=== PATIENT | female | born 1995 | race Caucasian/White ===

== ENCOUNTER 2017-11-04 04:02 | Emergency (ER) | payer BC ==
[~2017-11-04] VITALS: Ht 162.6 cm; Wt 68.2 kg
[2017-11-04 04:03] VITALS: TEMP 96.6
[2017-11-04 08:35] VITALS: BP 117/92; PULSE 93
== END 2017-11-04 08:39 | disposition home or self-care (01) ==
LOC: COL.ER 04:02
DX: F10.129 Alcohol abuse with intoxication, unspecified (principal); Y90.8 Blood alcohol level of 240 mg/100 ml or more